=== PATIENT | male | born 1990 | race Caucasian/White ===

== ENCOUNTER 2018-12-07 14:27 | Emergency (ER) | payer BC ==
[2018-12-07] MEDS ORDERED: HYDROCODONE/APAP 7.5/325 MG TAB ONE (15:17)
--- NOTE | 2018-12-07 15:33 | RAD REPORT ---
EXAM DESCRIPTION: RAD - Knee Right 3 View - 12/07/2018 3:07 pm CLINICAL HISTORY: PAIN Pain and swelling COMPARISON: No comparisons FINDINGS: Moderate soft tissue swelling is seen anterior to the patella. No significant intra-articu lar joint fluid. No acute fracture or dislocation seen.
--- NOTE | 2018-12-07 15:51 | RAD REPORT ---
EXAM DESCRIPTION: US - Extremity Nonvascular Limited - 12/07/2018 3:38 pm CLINICAL HISTORY: evaluate for abscess right knee;Pain;Swelling COMPARISON: No comparisonsNo comparisons TECHNIQUE: Real-time sonographic evaluation of the area of interest was performed. FINDINGS: Ill-defined defined soft tissue fluid collection is seen in the subcutaneous space measuri ng 3.7 x 3.6 x 2.6 cm. In the correct clinical setting, this would be compatible with an abscess.
[2018-12-07] MEDS ORDERED: LIDOCAINE 1% MPF 5 ML VIAL ONE (16:15)
--- NOTE | 2018-12-07 16:27 | EDPHYS ---
Physician Documentation [facility] Name: Librado Peralta Age: 28 yrs Sex: Male : 1990 Arrival Date: 12/07/2018 Time: 14:31 Bed 25 Private MD: ED Physician Jonah Thompson HPI: 12/07 15:28 This 28 yrs old Male presents to ER via Ambulatory with complaints of Knee kb Pain. 15:30 The patient presents with an abscess, moderate-sized, an injury, pain, swelling, kb tenderness. The complaints affect the right knee. Context: Context: The problem was sustained at home, resulted from the patient falling, the patient can fully bear weight, the patient is able to ambulate. Onset: The symptoms/episode began/occurred yesterday. Modifying factors: The symptoms are alleviated by nothing. the symptoms are aggravated by bending knee. Associated signs and symptoms: Pertinent positives: swelling, warmth, Pertinent negatives calf tenderness, fever, nausea, numbness, rash, tingling, vomiting, weakness. Treatment prior to arrival includes: no previous treatment. Severity of symptoms: At their worst the symptoms were moderate, in the emergency department the symptoms are unchanged. The patient has not experienced similar symptoms in the past. The patient has not recently seen a physician. Pt reports he fell directly onto right knee a month ago. Has had some redness to knee, but it was much worse today, swollen and painful. Historical: - Allergies: 14:33 No Known Allergies; hj - Home Meds: 14:33 citalopram oral once daily [Active]; hj - PMHx: 14:33 Depression; hj - PSHx: 14:33 None; hj - Immunization history:: Adult Immunizations up to date. - Social history:: Smoking status: Patient/guardian denies using tobacco, Patient/guardian denies using alcohol. - Ebola Screening: : Patient negative for fever greater than or equal to 101.5 degrees Fahrenheit, and additional compatible Ebola Virus Disease symptoms Patient denies exposure to infectious person Patient denies travel to an Ebola-affected area in the 21 days before illness onset. ROS: 15:28 Constitutional: Negative for fever, chills, and weight loss, Cardiovascular: Negative kb for chest pain, palpitations, and edema, Respiratory: Negative for shortness of breath, cough, wheezing, and pleuritic chest pain, Abdomen/GI: Negative for abdominal pain, nausea, vomiting, diarrhea, and constipation, Neuro: Negative for headache, weakness, numbness, tingling, and seizure. 15:28 MS/extremity: Positive for injury or acute deformity, pain, swelling, tenderness, of the right knee. 15:28 Skin: Positive for abscess, erythema, of the right knee. Exam: 15:29 Constitutional: This is a well developed, well nourished patient who is awake, alert, kb and in no acute distress. Head/Face: Normocephalic, atraumatic. Chest/axilla: Normal chest wall appearance and motion. Nontender with no deformity. No lesions are appreciated. Cardiovascular: Regular rate and rhythm with a normal S1 and S2. No gallops, murmurs, or rubs. Normal PMI, no JVD. No pulse deficits. Respiratory: Lungs have equal breath sounds bilaterally, clear to auscultation and percussion. No rales, rhonchi or wheezes noted. No increased work of breathing, no retractions or nasal flaring. Abdomen/GI: Soft, non-tender, with normal bowel sounds. No distension or tympany. No guarding or rebound. No evidence of tenderness throughout. MS/ Extremity: Pulses equal, no cyanosis. Neurovascular intact. Full, normal range of motion. Neuro: Awake and alert, GCS 15, oriented to person, place, time, and situation. Cranial nerves II-XII grossly intact. Motor strength 5/5 in all extremities. Sensory grossly intact. Cerebellar exam normal. Normal gait. 15:29 Skin: abscess, that is moderate sized, of the right knee, with induration, with surrounding cellulitis, that is moderate. Vital Signs: 14:34 BP 146 / 85; Pulse 98; Resp 18; Temp 98.4(O); Pulse Ox 100% on R/A; Weight 123.38 kg; hj Height 6 ft. 0 in. (182.88 cm); Pain 6/10; 15:15 BP 136 / 94; Pulse 89; Resp 19; Pulse Ox 95% on R/A; ca1 15:45 BP 125 / 77; Pulse 87; Resp 19; Pulse Ox 100% on R/A; ca1 16:21 BP 126 / 76; Pulse 89; Resp 19; Pulse Ox 95% on R/A; ca1 14:34 Body Mass Index 36.89 (123.38 kg, 182.88 cm) Procedures: 16:25 I \T\ D: Incision and drainage was performed for an abscess of the right right knee kb Prepped with Betadine, Anesthetized with 5 ml's 1% Lidocaine. Incised with #11 blade. Drained large amount purulent fluid. bloody fluid. Cultures obtained. Packed with iodoform gauze, Dressing: sterile 4x4 gauze, the patient tolerated the procedure well. MDM: 14:39 Patient medically screened. kb 15:28 Data reviewed: vital signs, nurses notes. Data interpreted: Pulse oximetry: on room air kb is 95 %. Interpretation: normal. 15:32 ED course: abscess is on top of knee, no joint involvement noted. kb 16:25 Counseling: I had a detailed discussion with the patient and/or guardian regarding: the kb historical points, exam findings, and any diagnostic results supporting the discharge/admit diagnosis, the need for outpatient follow up, a family practitioner, a general surgeon, to return to the emergency department if symptoms worsen or persist or if there are any questions or concerns that arise at home. 12/07 15:34 Order name: Wound Culture 12/07 14:36 Order name: Knee Right 3 View XRAY; Complete Time: 15:33 hj 12/07 14:47 Order name: US Extrmty Nonvasular Limited; Complete Time: 15:57 kb 12/07 15:34 Order name: I\T\D Setup; Complete Time: 16:04 kb Administered Medications: 06:34 Drug: Bactrim (160 mg-800 mg (DS) 1 tablet Route: PO; ca1 16:41 Follow up: Response: Medication administered at discharge. ca1 15:05 Drug: Clay (7.5 mg-325 mg) 1 tabs Route: PO; ca1 16:24 Follow up: Response: No adverse reaction; Pain is decreased ca1 16:33 Drug: Doxycycline 100 mg Route: PO; ca1 16:41 Follow up: Response: Medication administered at discharge. ca1 Disposition: 12/08 10:18 Co-signature as Attending Physician, Jonah Thompson MD I agree with the assessment and jesse plan of care. Disposition: 12/07/18 16:27 Discharged to Home. Impression: Cutaneous abscess of right lower limb - knee. - Condition is Stable. - Discharge Instructions: Skin Abscess, [id number], Incision and Drainage, Care After. - Prescriptions for Tylenol- Codeine #3 300-30 mg Oral Tablet - take 1 tablet by ORAL route every 6 hours As needed; 15 tablet. Doxycycline Hyclate 100 mg Oral Tablet - take 1 tablet by ORAL route every 12 hours; 20 tablet. Bactrim DS 800- 160 mg Oral Tablet - take 1 tablet by ORAL route every 12 hours for 10 days; 20 tablet. - Medication Reconciliation Form, Thank You Letter, Antibiotic Education, Prescription Opioid Use, Work release form form. - Follow up: Emergency Department; When: As needed; Reason: Worsening of condition. Follow up: Private Physician; When: 2 - 3 days; Reason: Recheck today's complaints, Continuance of care, Re-evaluation by your physician. Signatures: Dispatcher [employer] EDMS Isis Navarrete, [employer]-C RICHAR-Jonah Barlow MD MD cha Joaquin, Henry, RN RN hj Evangelina Padilla RN RN ca1 Corrections: (The following items were deleted from the chart) 12/07 16:54 16:27 12/07/2018 16:27 Discharged to Home. Impression: Cutaneous abscess of right lower ca1 limb - knee. Condition is Stable. Forms are Medication Reconciliation Form, Thank You Letter, Antibiotic Education, Prescription Opioid Use. Follow up: Emergency Department; When: As needed; Reason: Worsening of condition. Follow up: Private Physician; When: 2 - 3 days; Reason: Recheck today's complaints, Continuance of care, Re-evaluation by your physician. kb
--- NOTE | 2018-12-07 16:27 | ER ---
Nurse's Notes [facility] Name: Librado Peralta Age: 28 yrs Sex: Male : 1990 Arrival Date: 12/07/2018 Time: 14:31 Bed 25 Private MD: Diagnosis: Cutaneous abscess of right lower limb-knee Presentation: 12/07 14:31 Presenting complaint: Patient states: about a month ago, i fell directly into my knee hj cap; Saturday, i noticed it started to have redness on the area; pain 6/10;. Transition of care: patient was not received from another setting of care. Onset of symptoms was December 07, 2018. Risk Assessment: Do you want to hurt yourself or someone else? Patient reports no desire to harm self or others. Initial Sepsis Screen: Does the patient meet any 2 criteria? No. Patient's initial sepsis screen is negative. Does the patient have a suspected source of infection? No. Patient's initial sepsis screen is negative. Care prior to arrival: None. 14:31 Method Of Arrival: Ambulatory 14:31 Acuity: JOSSELINE 4 hj Triage Assessment: 14:34 General: Appears in no apparent distress. uncomfortable, Behavior is calm, cooperative, hj appropriate for age. Pain: Complains of pain in right knee. Historical: - Allergies: 14:33 No Known Allergies; hj - Home Meds: 14:33 citalopram oral once daily [Active]; hj - PMHx: 14:33 Depression; hj - PSHx: 14:33 None; hj - Immunization history:: Adult Immunizations up to date. - Social history:: Smoking status: Patient/guardian denies using tobacco, Patient/guardian denies using alcohol. - Ebola Screening: : Patient negative for fever greater than or equal to 101.5 degrees Fahrenheit, and additional compatible Ebola Virus Disease symptoms Patient denies exposure to infectious person Patient denies travel to an Ebola-affected area in the 21 days before illness onset. Screenin:34 Abuse screen: Denies threats or abuse. Denies injuries from another. Nutritional hj screening: No deficits noted. Tuberculosis screening: No symptoms or risk factors identified. Fall Risk Fall in past 12 months (25 points). Assessment: 14:40 General: Appears in no apparent distress. comfortable, Behavior is calm, cooperative, ca1 appropriate for age. Pain: Complains of pain in right knee Pain does not radiate. Pain currently is 5 out of 10 on a pain scale. Pain began over a week ago Aggravated by increased activity, repositioning, weight bearing. Neuro: Level of Consciousness is awake, alert, obeys commands, Oriented to person, place, time, situation. Cardiovascular: Heart tones S1 S2 present Capillary refill < 3 seconds Patient's skin is warm and dry. Respiratory: Airway is patent Respiratory effort is even, unlabored, Respiratory pattern is regular, symmetrical, Breath sounds are clear bilaterally. GI: No deficits noted. No signs and/or symptoms were reported involving the gastrointestinal system. : No deficits noted. No signs and/or symptoms were reported regarding the genitourinary system. EENT: No deficits noted. No signs and/or symptoms were reported regarding the EENT system. Derm: Skin is healthy with good turgor, Skin is pink, warm \T\ dry. Bruising that is bright red, on right knee. Musculoskeletal: Circulation, motion, and sensation intact. Capillary refill < 3 seconds, Range of motion: limited in right knee. Injury Description:. 14:40 Reassessment: Patient appears in no apparent distress at this time. Patient and/or ca1 family updated on plan of care and expected duration. Pain level reassessed. Patient is alert, oriented x 3, equal unlabored respirations, skin warm/dry/pink. 16:08 Reassessment: REBA Marinelli at bedside for I\T\D procedure. ca1 16:45 Reassessment: Patient appears in no apparent distress at this time. Patient is alert, ca1 oriented x 3, equal unlabored respirations, skin warm/dry/pink. Packed wound. Assessed pain. Pt states pain is tolerable. Vital Signs: 14:34 BP 146 / 85; Pulse 98; Resp 18; Temp 98.4(O); Pulse Ox 100% on R/A; Weight 123.38 kg; hj Height 6 ft. 0 in. (182.88 cm); Pain 6/10; 15:15 BP 136 / 94; Pulse 89; Resp 19; Pulse Ox 95% on R/A; ca1 15:45 BP 125 / 77; Pulse 87; Resp 19; Pulse Ox 100% on R/A; ca1 16:21 BP 126 / 76; Pulse 89; Resp 19; Pulse Ox 95% on R/A; ca1 14:34 Body Mass Index 36.89 (123.38 kg, 182.88 cm) ED Course: 14:31 Patient arrived in ED. hj 14:33 Triage completed. hj 14:34 Arm band placed on left wrist. hj 14:34 Patient has correct armband on for positive identification. Bed in low position. Call hj light in reach. Side rails up X 1. Adult w/ patient. 14:39 Isis Navarrete FNP-C is [facility]. kb 14:39 Jonah Thompson MD is Attending Physician. kb 15:02 Evangelina Padilla, CIRO is Primary Nurse. ca1 15:08 Knee Right 3 View XRAY In Process Unspecified. EDMS 15:15 Pulse ox on. NIBP on. Warm blanket given. ca1 15:38 US Extrmty Nonvasular Limited In Process Unspecified. EDMS 16:20 Assist provider with I \T\ D: of an abscess on right knee Set up I\T\D tray. Performed by ca 1 Isis MCFARLANE Culture sent to lab. Wound packed. 4X4s, Dressing with 4X4s, Patient tolerated well. 16:20 Patient did not have IV access during this emergency room visit. ca1 Administered Medications: 06:34 Drug: Bactrim (160 mg-800 mg (DS) 1 tablet Route: PO; ca1 16:41 Follow up: Response: Medication administered at discharge. ca1 15:05 Drug: [place] (7.5 mg-325 mg) 1 tabs Route: PO; ca1 16:24 Follow up: Response: No adverse reaction; Pain is decreased ca1 16:33 Drug: Doxycycline 100 mg Route: PO; ca1 16:41 Follow up: Response: Medication administered at discharge. ca1 Outcome: 16:20 Discharged to home via wheelchair, with family. ca1 16:20 Condition: stable 16:20 Discharge instructions given to patient, Instructed on discharge instructions, follow up and referral plans. medication usage, Demonstrated understanding of instructions, follow-up care, medications, Prescriptions given X 3. 16:27 Discharge ordered by . kb 16:54 Patient left the ED. ca1 Signatures: Dispatcher [employer] EDMS Isis Navarrete FNP-C FNP-Ckb Joaquin, Henry, RN RN Evangelina Padilla RN RN ca1 Corrections: (The following items were deleted from the chart) 14:36 14:34 Pulse 98bpm; Resp 18bpm; Pulse Ox 100% RA; Temp 98.4F Oral; 123.38 kg; Height 6 hj ft. 0 in.; BMI: 36.8; Pain 6/10; hj 15:15 14:40 BP 136 / 94; Pulse 89bpm; Resp 19bpm; Pulse Ox 95% RA; ca1 ca1 16:08 14:40 Reassessment: REBA Marinelli at bedside for I\T\D procedure ca1 ca1
[2018-12-07] MEDS ORDERED: SMZ./TMP. 800/160 MG TABLET ONE (16:45)
[2018-12-07] MEDS ORDERED: DOXYCYCLINE 100 MG CAP PO ONE (16:45)
== END 2018-12-07 16:54 | disposition home or self-care (01) ==
LOC: ER 14:27
PROC: 0J9N0ZZ Drainage of Right Lower Leg Subcutaneous Tissue and Fascia, Open Approach (ICD-10-PCS; principal; 2018-12-07)
DX: L02.415 Cutaneous abscess of right lower limb (principal); F32.9 Major depressive disorder, single episode, unspecified
CPT/HCPCS: 76882; 87070; 87077; 87186; 87205; 99284

== ENCOUNTER 2024-03-24 14:34 | Emergency (ER) | payer MEDICARE ==
--- OUTSIDE RECORDS SUMMARY | 2024-03-24 14:37 | XMS REPORT | Continuity of Care Document ---
Author Name Unknown Address [address] [place] [address] [facility] Address 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 Role Phone Graham Magallanes Attending Clinician Unavailable Marta Bowers Attending Clinician Unavailable Love Ledbetter Attending Clinician Unavailable Encounters Start Date/Time End Date/Time Encounter Type Admission Type Attending Clinicians Care Facility Care Department Encounter ID Source 2024-03-02 11:46:00 Outpatient Graham Magallanes [facility] [id number] [facility] 2024-01-30 09:41:01 Outpatient Graham Magallanes [facility] [id number] [facility] 2023-11-01 08:41:00 Outpatient Graham Magallanes [facility] [id number] [facility] 2023-06-03 15:05:00 Outpatient Graham Magallanes [facility] [id number] [facility] 2023-05-23 07:37:00 Outpatient Graham Magallanes [facility] [id number] [facility] 2023-05-22 08:22:00 Outpatient Graham Magallanes [facility] [id number] [facility] 2023-05-21 16:16:00 Outpatient Graham Magallanes [facility] [id number] [facility] 2023-02-12 15:41:00 Outpatient [facility] [id number] [facility] 2022-11-20 10:27:00 Outpatient Marta Bowers [facility] [id number] [facility] 2022-05-29 11:36:00 Outpatient Love Ledbetter [facility] [id number] [facility] 2021-11-23 15:06:01 Outpatient Love Ledbetter [facility] [id number] [facility] 2021-10-11 14:30:09 Outpatient Khloe Na [facility] [id number] [facility] 2021-10-11 13:41:05 Outpatient Love Ledbetter [facility] [id number] [facility] 2021-10-11 12:34:27 Outpatient Love Ledbetter [facility] [id number] [facility] 2021-10-11 12:33:44 Outpatient Khloe, Love [facility] [id number] [facility] 2021-10-11 11:41:37 Outpatient Love Ledbetter [facility] [id number] [facility] 2021-10-11 11:40:41 Outpatient Love Ledbetter [facility] [id number] [facility] 2021-10-11 11:07:10 Outpatient Ledbetter, Na [facility] [id number] [facility] 2021-10-11 11:06:27 Outpatient Ledbetter, Na [facility] [id number] [facility]
[2024-03-24] MEDS ORDERED: ONDANSETRON 4 MG/2 ML VIAL ONE (15:20)
[2024-03-24] MEDS ORDERED: MORPHINE 4 MG/ML SYR ONE (15:21)
[2024-03-24] MEDS ORDERED: NA CHLORIDE 0.9% 1,000 ML ONE (15:21)
[2024-03-24 16:44] LABS: Absolute Eosinophils 0.2 K/uL (0-0.5); Absolute Lymphocytes (CBC) 2.1 K/uL (0.7-4.9); Absolute Monocytes 0.5 K/uL (0.1-1.3); Absolute Neutrophil 3.6 K/uL (1.8-8.0); Basophils % 0.6 % (0-1.3); Eosinophils % 3.5 % (0-4.4); Hematocrit 44.8 % (39.6-49.0); Hemoglobin 14.5 g/dL (13.6-17.9); Lymphocytes % 32.6 % (15.3-44.8); MCH 28.5 pg (27.0-35.0); MCHC 32.4 g/dL (32.0-36.0); MCV 88.2 fL (80-100); MPV 8.2 fL (7.6-11.3); Monocytes % 7.5 % (3.3-12.3); Neutrophils % 55.8 % (41.7-73.7); Platelets 339 thou/uL (152-406); RBC Red Blood Cell Count 5.07 M/uL (4.33-5.43); Red Cell Distribution Width 12.1 % (12.1-15.2)
[2024-03-24 16:50] LABS: Specific Gravity 1.028 (1.005-1.030); Sqamous Epithelial None Seen /HPF (None Seen); Urine Bacteria None Seen /HPF (<20); Urine Bilirubin NEGATIVE (Negative); Urine Blood Negative (Negative); Urine Clarity Clear (Clear); Urine Color Yellow (Yellow); Urine Culture Reflex Order NOT NEEDED; Urine Glucose NEGATIVE (Negative); Urine Ketones NEGATIVE (Negative); Urine Microscopic Reflex YN ORDER UMIC; Urine Nitrite NEGATIVE (Negative); Urine Protein TRACE (Negative); Urine RBC <5 /HPF (None Seen); Urine Urobilinogen Normal (Normal); Urine WBC None Seen /HPF (<5)
[2024-03-24 17:01] LABS: Albumin/Globulin Ratio 1.1 (1.1-1.8); Anion Gap 6.7 mEq/L (5.0-15.0); Bilirubin Total 0.5 mg/dL (0.2-1.0); Globulin 3.5 g/dL (2.3-3.5); Potassium 3.7 mEq/L (3.5-5.1); Protein, Total 7.5 g/dL (6.4-8.2)
--- NOTE | 2024-03-24 19:42 | RAD REPORT ---
EXAM DESCRIPTION: CTAbdomen Pelvis W Contrast - 03/24/2024 6:32 pm CLINICAL HISTORY: Abdominal pain. ABD PAIN COMPARISON: No comparisons TECHNIQUE: Biphasic CT imaging of the abdomen and pelvis was performed with 100 ml non-ionic IV cont rast. All CT scans are performed using dose optimization technique as appropriate and may include automated exposure control or mA/KV adjustment according to patient size. FINDINGS: The lung bases are clear. The liver, spleen, pancreas, adrenal glands and kidneys are within normal limits. No bowel obstruction, free air, free fluid or abscess. The appendix is normal. No evidence of signi ficant lymphadenopathy. No suspicious bony findings. IMPRESSION: No acute intra-abdominal or pelvic finding.
--- NOTE | 2024-03-24 21:08 | ER ---
Nurse's Notes [facility] Name: Librado Peralta Age: 33 yrs Sex: Male : 1990 Arrival Date: 03/24/2024 Time: 14:34 Bed 11 Private MD: Diagnosis: Lower abdominal pain, unspecified Presentation: 03/24 14:58 Chief complaint: Patient states: abdominal pain x6 weeks that worsened today. as6 Coronavirus screen: At this time, the client does not indicate any symptoms associated with coronavirus-19. Ebola Screen: No symptoms or risks identified at this time. Initial Sepsis Screen: Does the patient meet any 2 criteria? No. Patient's initial sepsis screen is negative. Does the patient have a suspected source of infection? No. Patient's initial sepsis screen is negative. Risk Assessment: Do you want to hurt yourself or someone else? Patient reports no desire to harm self or others. Onset of symptoms was March 24, 2024. 14:58 Method Of Arrival: Wheelchair as6 14:58 Acuity: JOSSELINE 3 as6 Triage Assessment: 15:00 General: Appears uncomfortable, Behavior is calm, cooperative. Pain: Complains of pain as6 in right lower quadrant. Historical: - Allergies: 15:00 No Known Allergies; as6 - PMHx: 15:00 Depression; as6 - PSHx: 15:00 None; as6 - Immunization history:: Adult Immunizations up to date. - Infectious Disease History:: Denies. - Social history:: Smoking status: Patient denies any tobacco usage or history of. Screenin:39 [facility] ED Fall Risk Assessment (Adult) History of falling in the last 3 months, cm10 including since admission No falls in past 3 months (0 pts) Confusion or Disorientation No (0 pts) Intoxicated or Sedated No (0 pts) Impaired Gait No (0 pts) Mobility Assist Device Used No (0 pt) Altered Elimination No (0 pt) Score/Fall Risk Level 0 - 2 = Low Risk Oriented to surroundings, Maintained a safe environment, Hourly rounding (assess needs \T\ fall precautionary measures) done. Abuse screen: Denies threats or abuse. Denies injuries from another. Nutritional screening: No deficits noted. Tuberculosis screening: No symptoms or risk factors identified. Assessment: 15:40 General: Appears in no apparent distress. uncomfortable, Behavior is calm, cooperative. cm10 Pain: Complains of pain in right lower quadrant Pain radiates to posterior aspect of right lateral abdomen and left lower quadrant. Neuro: No deficits noted. Level of Consciousness is awake, alert, obeys commands, Oriented to person, place, time, situation, Appropriate for age. Respiratory: No deficits noted. Airway is patent Respiratory effort is even, unlabored, Respiratory pattern is regular, symmetrical. GI: Abdomen is non-distended, Not auscultated. Abd is soft X 4 quads Abdomen is tender to palpation in right lower quadrant and left lower quadrant. Derm: No deficits noted. Skin is healthy with good turgor, Skin is pink, warm \T\ dry. Musculoskeletal: No deficits noted. Range of motion: intact in all extremities. Vital Signs: 14:58 BP 122 / 81; Pulse 84; Resp 18; Temp 98.9(TE); Pulse Ox 96% on R/A; Weight 102.06 kg; as6 Height 5 ft. 10 in. ; Pain 5/10; 15:38 BP 137 / 91; Pulse 73; Resp 16; Pulse Ox 100% ; cm10 14:58 Body Mass Index 32.28 (102.06 kg, 177.8 cm) as6 14:58 Pain Scale: Adult as6 ED Course: 14:35 Patient arrived in ED. im 14:37 Lily Stark PA-C is PHCP. sb4 14:37 Cesar Roberto MD is Attending Physician. sb4 15:00 Triage completed. as6 15:00 Arm band placed on left wrist. as6 15:38 Urinalysis w/ reflexes Sent. cm10 15:38 Lipase Sent. cm10 15:38 CMP Sent. cm10 15:38 CBC with Diff Sent. cm10 15:38 Initial lab(s) drawn, by me, sent to lab. Urine collected: clean catch specimen, josemanuel cm10 colored. Inserted saline lock: 20 gauge in right antecubital area, using aseptic technique. Blood collected. 15:39 Patient has correct armband on for positive identification. Bed in low position. Call cm10 light in reach. Side rails up X2. Provided Education on: ER process and procedures.. Pulse ox on. NIBP on. 15:51 Erin Vargas RN is Primary Nurse. al5 19:29 Hope, Juan, MD is Referral Physician. sb4 19:41 No provider procedures requiring assistance completed. IV discontinued, intact, eb1 bleeding controlled, No redness/swelling at site. 21:05 CT Abd/Pelvis - IV Contrast Only In Process Unspecified. EDMS Administered Medications: 15:36 Drug: NS 0.9% IV 1000 ml IV at 1 bolus Per protocol; 1000 mL bolus Route: IV; Rate: 1 cm10 bolus; Site: right antecubital; 15:38 Drug: Ondansetron IVP 4 mg IVP once; over 2 minutes Route: IVP; Site: right antecubital;cm10 19:03 Follow up: Response: No adverse reaction cm10 15:38 Drug: morphine IVP or IV 4 mg IVP once over 4 mins Route: IVP; Infused Over: 4 mins; cm10 Site: right antecubital; 19:03 Follow up: Response: No adverse reaction cm10 Medication: 15:51 VIS not applicable for this client. al5 Outcome: 19:30 Discharge ordered by . sb4 19:41 Discharged to home ambulatory, eb1 19:41 Condition: improved 19:41 Discharge instructions given to patient, Instructed on discharge instructions, follow up and referral plans. Demonstrated understanding of instructions, follow-up care, medications, Prescriptions given X 1, 19:42 Patient left the ED. eb1 Signatures: Dispatcher [employer] EDMS Ayanna Rocha RN RN eb1 Nikolas Gonzales RN RN as6 Lily Stark PAMaite PA-C sb4 Bertha Hennessy Clarissa, RN RN cm10 Erin Vargas RN RN al5
--- NOTE | 2024-03-24 21:08 | EDPHYS ---
Physician Documentation [facility] Name: Librado Peralta Age: 33 yrs Sex: Male : 1990 Arrival Date: 03/24/2024 Time: 14:34 Bed 11 Private MD: ED Physician Cesar Roberto HPI: 03/24 19:08 This 33 yrs old Male presents to ER via Wheelchair with complaints of Abdominal Pain. sb4 19:08 The patient presents with abdominal pain right lower quadrant. Onset: The sb4 symptoms/episode began/occurred 6 week(s) ago, and became worse yesterday. The symptoms do not radiate. Associated signs and symptoms: none. The patient has been recently seen by a physician: had negative US. Historical: - Allergies: 15:00 No Known Allergies; as6 - PMHx: 15:00 Depression; as6 - PSHx: 15:00 None; as6 - Immunization history:: Adult Immunizations up to date. - Infectious Disease History:: Denies. - Social history:: Smoking status: Patient denies any tobacco usage or history of. ROS: 19:08 Constitutional: Negative for fever, chills, and weight loss, sb4 19:08 Abdomen/GI: Positive for abdominal pain, 19:08 All other systems are negative, Exam: 19:08 Head/Face: Normocephalic, atraumatic. Eyes: Extra-ocular motions intact. Periorbital sb4 areas with no swelling, redness, or edema. ENT: Mucous membranes moist. Cardiovascular: Regular rate and rhythm with a normal S1 and S2. Respiratory: Lungs have equal breath sounds bilaterally, clear to auscultation and percussion. No rales, rhonchi or wheezes noted. No increased work of breathing, no retractions or nasal flaring. 19:08 Constitutional: The patient appears alert, awake, in obvious pain, uncomfortable, 19:08 Abdomen/GI: Inspection: abdomen appears normal, Bowel sounds: normal, Palpation: soft, moderate abdominal tenderness, in the anterior aspect of right lateral abdomen and right lower quadrant, Vital Signs: 14:58 BP 122 / 81; Pulse 84; Resp 18; Temp 98.9(TE); Pulse Ox 96% on R/A; Weight 102.06 kg; as6 Height 5 ft. 10 in. ; Pain 5/10; 15:38 BP 137 / 91; Pulse 73; Resp 16; Pulse Ox 100% ; cm10 14:58 Body Mass Index 32.28 (102.06 kg, 177.8 cm) as6 14:58 Pain Scale: Adult as6 MDM: 15:03 Patient medically screened. sb4 22:05 Data reviewed: vital signs, nurses notes, lab test result(s), radiologic studies, and sb4 as a result, I will discharge patient. Historians other than the Patient: Parent: mother. Care significantly affected by the following chronic conditions: Obesity. Counseling: I had a detailed discussion with the patient and/or guardian regarding the historical points, exam findings, and any diagnostic results supporting the discharge/admit diagnosis, lab results, radiology results, the need for outpatient follow up, a trial paralegal, to return to the emergency department if symptoms worsen or persist or if there are any questions or concerns that arise at home. 03/24 15:04 Order name: CBC with Diff sb4 03/24 15:04 Order name: CMP sb4 03/24 15:04 Order name: Lipase sb4 03/24 15:04 Order name: Urinalysis w/ reflexes sb4 03/24 15:04 Order name: CT Abd/Pelvis - IV Contrast Only sb4 03/24 15:04 Order name: IV Saline Lock; Complete Time: 15:38 sb4 03/24 15:04 Order name: Labs collected and sent; Complete Time: 15:38 sb4 Administered Medications: 15:36 Drug: NS 0.9% IV 1000 ml IV at 1 bolus Per protocol; 1000 mL bolus Route: IV; Rate: 1 cm10 bolus; Site: right antecubital; 15:38 Drug: Ondansetron IVP 4 mg IVP once; over 2 minutes Route: IVP; Site: right antecubital;cm10 19:03 Follow up: Response: No adverse reaction cm10 15:38 Drug: morphine IVP or IV 4 mg IVP once over 4 mins Route: IVP; Infused Over: 4 mins; cm10 Site: right antecubital; 19:03 Follow up: Response: No adverse reaction cm10 Disposition: 03/25 09:03 Co-signature as Attending Physician, Cesar Roberto MD I reviewed the patient's care rn provided by the Advanced Practice Provider and agree with the diagnosis and treatment plan. Disposition Summary: 03/24/24 19:30 Discharge Ordered Notes: Location: Home sb4 Problem: new sb4 Symptoms: have improved sb4 Condition: Stable sb4 Diagnosis - Lower abdominal pain, unspecified sb4 Followup: sb4 - With: Juan Arnett MD - When: As needed - Reason: Further diagnostic work-up, Recheck today's complaints, Re-evaluation by your physician Discharge Instructions: - Discharge Summary Sheet sb4 - Abdominal Pain, Adult sb4 Forms: - Patient Portal Instructions sb4 - Leadership Thank You Letter sb4 Prescriptions: - Prednisone 20 mg Oral Tablet - take 2 tablets ORAL route once daily for 5 days; 10 tablet; Refills: 0, Product sb4 Selection Permitted Signatures: Dispatcher [employer] EDMS Cesar Roberto MD MD rn Slawson, Ashby, RN RN as6 Lily Stark, PA-C PAMortezaC sb4 Linnea Fong RN RN cm10 Corrections: (The following items were deleted from the chart) 03/24 15:04 15:04 CBC+H.LAB.BRZ ordered. EDMS EDMS 15:04 15:04 COMPREHENSIVE METABOLIC PANEL+C.LAB.BRZ ordered. EDMS EDMS 15:04 15:04 LIPASE+C.LAB.BRZ ordered. EDMS EDMS 15:04 15:04 Urinalysis+U.LAB.BRZ ordered. EDMS EDMS 15:04 15:04 Abdomen Pelvis W Con+CT.RAD.BRZ ordered. EDMS EDMS
[2024-03-24 23:11] VITALS: BP 137/91; TEMP 98.9; O2SAT 100
== END 2024-03-24 19:42 | disposition home or self-care (01) ==
LOC: ER 14:34
DX: R10.31 Right lower quadrant pain (principal)
CPT/HCPCS: 36415; 74177; 80053; 81001; 83690; 85025; 96374; 96375; 99284; J2405; J7030; Q9967

== ENCOUNTER 2024-11-09 07:26 | Day surgery (SDC) | payer MEDICARE ==
[2024-11-06 16:20] LABS: Absolute Eosinophils 0.1 K/uL (0-0.5); Absolute Lymphocytes (CBC) 1.7 K/uL (0.7-4.9); Absolute Monocytes 0.3 K/uL (0.1-1.3); Absolute Neutrophil 2.5 K/uL (1.8-8.0); Basophils % 0.7 % (0-1.3); Eosinophils % 2.1 % (0-4.4); Hematocrit 44.4 % (39.6-49.0); Hemoglobin 15.1 g/dL (13.6-17.9); Lymphocytes % 37.2 % (15.3-44.8); MCH 29.3 pg (27.0-35.0); MCHC 34.1 g/dL (32.0-36.0); MCV 85.8 fL (80-100); Monocytes % 7.4 % (3.3-12.3); Neutrophils % 52.6 % (41.7-73.7); Nucleated Red Blood Cells % 0.1 % (0-0); Platelets 313 thou/uL (152-406); RBC Red Blood Cell Count 5.17 M/uL (4.33-5.43); Red Cell Distribution Width 12.2 % (12.1-15.2)
--- NOTE | 2024-11-06 16:27 | RAD REPORT ---
EXAM: Chest Pa And Lat (2 Views) HISTORY: 34 years Male PRE OP COMPARISON: None. FINDINGS: LUNGS/PLEURA: The lungs are clear. No pleural effusions or pneumothorax. No pulmonary edema. MEDIASTINUM: The mediastinal silhouette is within normal limits CARDIAC: The cardiac silhouette is within normal limits. UPPER ABDOMEN: No significant abnormality. BONES: No acute abnormality. LINES/TUBES/OTHER: N/A IMPRESSION: No evidence of acute cardiopulmonary disease.
[2024-11-06 16:40] LABS: Albumin 3.9 g/dL (3.4-5.0); Albumin/Globulin Ratio 1.1 (1.1-1.8); Anion Gap 9.2 mEq/L (5.0-15.0); Bilirubin Direct 0.2 mg/dL (0-0.2); Bilirubin Indirect, Calculated 0.3 mg/dL (0.2-0.8); Bilirubin Total 0.5 mg/dL (0.2-1.0); Globulin 3.5 g/dL (2.3-3.5); Potassium 4.2 mEq/L (3.5-5.1); Protein, Total 7.4 g/dL (6.4-8.2)
[2024-11-09] MEDS ORDERED: LIDOCAINE 1% MPF 5 ML VIAL ONE (07:43)
[2024-11-09] MEDS ORDERED: KETOROLAC 30 MG/ML INJ ONE (07:43)
[2024-11-09] MEDS ORDERED: ONDANSETRON 4 MG/2 ML VIAL ONE (07:43)
[2024-11-09] MEDS ORDERED: GLYCOPYRROLATE 0.2 MG/ML SYR ONE ×3 (07:43→09:46)
[2024-11-09] MEDS ORDERED: propofoL 200 MG/20 ML VIAL IV ONE (07:44)
[2024-11-09] MEDS ORDERED: ROCURONIUM 50 MG/5 ML VIAL IV ONE (07:44)
[2024-11-09] MEDS ORDERED: FENTANYL CITR 100 MCG/2 ML ONE (07:44)
[2024-11-09] MEDS ORDERED: MIDAZOLAM HCL 2 MG/2 ML INJ ONE (07:44)
[2024-11-09] MEDS: Ringers Lactate 1,000 ML IV ONE (07:50)
[2024-11-09] MEDS: CEFOXITIN SODIUM 1 GM/VIAL ONE (08:10)
[2024-11-09] MEDS ORDERED: NEOSTIGMINE 1 MG/ML -10 ML VIAL ONE (09:46)
[2024-11-09] MEDS ORDERED: Mastisol Adhesive Liq ONE (09:55)
--- NOTE | 2024-11-09 10:03 | P.BOP ---
Preoperative diagnosis: sympt. cholelithiasis, gallbladder polyps, RUQ abd pain, abd wall subQ tend Postoperative diagnosis: same Primary procedure: 1. Laparoscopic cholecystectomy Secondary procedure: 2. Excisional biopsy of Right abd wall tender subQ mass 2x2cm Other procedure(s): 3. Excisional biopsy of left abd wall tender subQ mass 3x2cm Estimated blood loss: <10cc Specimen: gb and masses x 2 Anesthesia: General Complications: None Transferred to: Recovery Room Condition: Good
[2024-11-09] MEDS: MEPERIDINE HCL 25 MG/ML SYR ONE (10:19)
[2024-11-09 10:24] VITALS: O2SAT 100
[2024-11-09] MEDS: HYDROMORPHONE HCL 1 MG/ML INJ ONE (10:40)
[2024-11-09] MEDS: HYDROCODONE/APAP 10/325 TAB ONE (11:29)
--- NOTE | 2024-11-09 12:06 | EKG ---
Test Date: 2024-11-06 Test Time: 17:08:50 Spray Gunner: SOFIE MEASUREMENT RESULTS: Intervals: Rate: 70 TX: 200 QRSD: 86 QT: 388 QTc: 419 Accord: P: 57 TX: 200 QRS: 70 T: 45 INTERPRETIVE STATEMENTS: Normal sinus rhythm Normal ECG No previous ECG available for comparison Electronically Signed On 11-09-24 12:04:39 OPS MANAGER by Remigio Alves
[2024-11-09 14:00] VITALS: BP 119/69
[2024-11-09 14:01] VITALS: TEMP 97
--- NOTE | 2024-11-09 14:53 | OP ---
Date of Procedure: 11/09/2024 Surgeon: Amador Fong MD Preoperative Diagnoses: Symptomatic cholelithiasis, gallbladder polyps, right upper quadrant abdomin al pain, abdominal wall subcutaneous tender masses x2. Postoperative Diagnoses: Symptomatic cholelithiasis, gallbladder polyps, right upper quadrant abdomi nal pain, abdominal wall subcutaneous tender masses x2. Procedures: 1. Laparoscopic cholecystectomy. 2. Excisional biopsy of right abdominal wall tender subcutaneous mass, 2 x 2 cm. 3. Excisional biopsy of left abdominal wall tender subcutaneous mass, 3 x 2 cm. Estimated Blood Loss: Less than 10 cc. Anesthesia: General plus local. Specimen: Gallbladder and masses x2. Indication: This is a case of a 34-year-old patient who came with 3 problems, the gallbladder issues and then also have 2 abdominal wall masses that are increasing in size and he wants to take advantag e of this anesthesia and remove them at the same time through different incisions. He understand the benefits, alternatives, and risks of these procedures, which include, but not limited to, infection, bleeding, damage to adjacent structures, anesthesia complication, choledocholithiasis, bile leak, re currence, pancreatitis, CO, and even . He also understands this may not relieve any symptoms. He might need more than one surgical intervention. He understood, signed a consent. The areas of concern on the masses were marked by me and the patient in the holding room. Description Of Procedure: Patient was brought to the operating room, placed in supine position. Ane sthesia was induced without complication. Abdominal area was prepped and draped in the usual sterile fashion. Marcaine 0.5% was injected for local anesthetic followed by sharp incision of the skin in the infraumbilical region. Incision was carried down to fascia, which was opened under direct vision . Peritoneum was encountered, opened under direct vision. Vicryl #1 placed inside the fascia. Gold on trocar was carefully introduced. Pneumoperitoneum was obtained. I placed 3 more trocars, 5 mm ea ch one of them, 1 in the epigastric area, 2 in the right upper quadrant under direct visualization. This allowed me to visualize the area of the gallbladder. There were so many omental adhesions to th e gallbladder into the liver that we had to use the LigaSure to sequentially get those adhesions down . This allowed me to identify the fundus of the gallbladder and the infundibulum and the gallbladder was retracted in the inferolateral fashion exposing the triangle of Calot, obtaining critical view. Cystic duct and cystic artery were clearly isolated and freed circumferentially, and a connection be tween those and the gallbladder were clearly identified. I proceeded to ligate those by using at saravanan st 3 clips proximal, 1 clip distal, ligation in the middle. Same was done with the cystic artery. N o bile leak. No bleeding. The gallbladder was removed from the liver using Bovie cauterizer and rem tawanna from abdominal cavity using EndoCatch through the umbilical incision. Area was inspected once a gain. No bile leak. No bleeding. The area of the lysis of adhesions, no bleeding either. At that moment, I proceeded to remove the trocars under direct vision. Deflated the pneumoperitoneum. Close d the fascia with #1 Vicryl, irrigated subcutaneous tissue, closed that with 3-0 chromic and the skin in a subcuticular fashion with 3-0 chromic and Steri-Strips. We addressed also the issue of the abd ominal wall, right and left side. They are similar, different locations, but they were done using sa me technique which consisted of sharp incision of the skin. Incision was carried down to subcutaneo us tissue, found the mass. I bluntly dissected, obtained hemostasis with the Bovie and then closed t he subcutaneous tissue with 3-0 chromic and skin in subcuticular fashion with 3-0 chromic and Steri-S trips on top. The left and right side, we used the same technique, different incisions. Patient tolerated the procedure well. Patient sent to Recovery in s table condition. SUZY/SABRINA Voice ID: [id number] Report ID: [id number]
--- NOTE | 2024-11-09 14:53 | DS ---
Date of Discharge: 11/09/2024 Diagnoses: Symptomatic cholelithiasis, gallbladder polyps, right upper quadrant abdominal pain, abdo víctor wall subcutaneous tender masses. Procedures: Laparoscopic cholecystectomy and excisional biopsy of right and left abdominal wall tend er subcutaneous masses. Condition: Stable. Disposition: Home. Activity: As tolerated. No heavy lifting. Discharge Instructions: Follow up in my office in 1 week. Call for appointment at [phone]. Keep a lynette dry for 48 hours, then may shower. Keep Steri-Strips intact. SUZY/SABRINA Voice ID: [id number] Report ID: [id number]
== END 2024-11-09 12:26 | disposition home or self-care (01) ==
LOC: OR 07:26
PROVIDERS: ATTEND Surgery
PROC: 0FT44ZZ Resection of Gallbladder, Percutaneous Endoscopic Approach (ICD-10-PCS; principal; 2024-11-09 08:30)
PROC: 0JB80ZZ Excision of Abdomen Subcutaneous Tissue and Fascia, Open Approach (ICD-10-PCS; 2024-11-09 08:30)
DX: D17.1 Benign lipomatous neoplasm of skin and subcutaneous tissue of trunk (principal); K80.20 Calculus of gallbladder without cholecystitis without obstruction; R10.11 Right upper quadrant pain
CPT/HCPCS: 36415; 71046; 80048; 80076; 83690; 85025; 88304; 93005; J0694; J1171; J2003; J2175; J2250; J2405; J2704; J2710; J3010; J7120